=== PATIENT | female | born 1965 | race Hispanic/Latino ===

== ENCOUNTER 2020-01-15 10:11 | Outpatient (CLI) | payer MEDICARE ==
--- NOTE | 2020-01-15 12:46 | Magnetic Resonance Report ---
NONENHANCED MR SCAN OF THE BRAIN: INDICATION / CLINICAL INFORMATION: Subacute left hemiplegia; unsteady gait TECHNIQUE: Multiplanar, multisequence MR images of the brain obtained. COMPARISON: None available. FINDINGS: BRAIN / INTRACRANIAL CONTENTS: No acute ischemia, acute hemorrhage, mass effect, midline shift, or hy drocephalus. No chronic infarct or atrophy. Scattered the deep hemispheric white matter lesions krystian cially in the left frontal lobe; nonspecific; if there is history of hypertension, this could be due to chronic small vessel disease CRANIOCERVICAL JUNCTION: No significant abnormality. VASCULAR FLOW-VOIDS: No significant abnormality. ORBITS: No significant abnormality of visualized orbits. SINUSES / MASTOIDS: No significant abnormality of visualized sinuses and mastoid air cells. ADDITIONAL FINDINGS: None. IMPRESSION: 1. No acute/subacute ischemia in the right cerebral hemisphere Few scattered deep hemispheric white matter lesions; [place] 0; nonspecific Signer Name: Gemma Dubose MD Signed: 01/15/2020 12:41 PM Workstation Name: [id number]
== END 2020-01-15 10:12 | disposition home or self-care (01) ==
LOC: MRI 10:11
PROVIDERS: ATTEND Internal Medicine
DX: I69.354 Hemiplegia and hemiparesis following cerebral infarction affecting left non-dominant side (principal)
CPT/HCPCS: 70551